=== PATIENT | female | born 1960 | race African-American/Black ===

== ENCOUNTER 2017-04-14 23:34 | Emergency (ER) | payer MEDICARE, MEDICAID ==
[~2017-04-14] VITALS: Ht 167.6 cm; Wt 74.0 kg
[~2017-04-14 23:34] MED LIST: BENA20TA77; NORCO; [UNRECOGNIZED DRUG - OTHER]
[2017-04-15] MEDS ORDERED: ASPI-1159 PO (00:18)
[2017-04-15] MEDS ORDERED: LISI-604 PO (00:18)
[2017-04-15] MEDS ORDERED: GABA-290 PO (00:18)
[2017-04-15] MEDS ORDERED: ONDANSETRON HCL 4MG/2ML VIAL IV STA (00:49)
[2017-04-15] MEDS ORDERED: MORPHINE SULFATE 4 MG/ML CPJ (NOT FOR IM USE) IV STA (00:49)
[2017-04-15] MEDS ORDERED: FENTANYL CITRATE/PF 50MCG/ML 2ML VIAL IV ONE (02:00)
[2017-04-15] MEDS ORDERED: METHOCARBAMOL 500MG TABLET PO ONE (02:00)
[2017-04-15] MEDS ORDERED: KETOROLAC 60MG/2ML VIAL IM ONE (03:45)
[2017-04-15] MEDS ORDERED: KETOROLAC 60MG/2ML VIAL IM SCH (03:50)
[2017-04-15 04:04] VITALS: BP 142/98
== END 2017-04-15 04:13 | disposition home or self-care (01) ==
LOC: ER 04-15 00:09
DX: S46.011A Strain of muscle(s) and tendon(s) of the rotator cuff of right shoulder, initial encounter (principal); I10 Essential (primary) hypertension; I25.2 Old myocardial infarction; Z79.82 Long term (current) use of aspirin; X58.XXXA Exposure to other specified factors, initial encounter; Y93.E5 Activity, floor mopping and cleaning; Y92.89 Other specified places as the place of occurrence of the external cause; Y99.8 Other external cause status
CPT/HCPCS: 73030; 73060; 96372; 96374; 96375; 99284; J1885; J2270; J2405; J3010